=== PATIENT | male | born 1985 | race Caucasian/White ===

== ENCOUNTER → 2016-12-11 | Outpatient (CLI) | payer BC ==
[~2016-12-11] VITALS: Ht 180.3 cm; Wt 102.1 kg
[~2016-12-11] MED LIST: LEVO200T5 PO; PROP40TA PO; SINCALIDE 2 MCG in IV NORMAL SALINE 50ML 30 ML IV ONE
--- NOTE | 2016-12-11 12:36 | RAD ---
EXAM: Nuclear hepatobiliary scan with ejection fraction. HISTORY: Abdominal pain/nausea. TECHNIQUE: Serial static images are obtained of the liver and biliary system in a frontal projection following IV administration of 5.5 mCi of technetium-99m Choletec. After filling of the gallbladder, 2 mcg of sincalide were infused over 30 minutes and dynamic imaging continued over this period. The gallbladder ejection fraction was calculated. FINDINGS: There is prompt hepatic clearance of tracer from the blood pool. There is homogeneous distribution throughout the liver. There is normal filling of the gallbladder and normal emptying into the biliary system and small bowel. The gallbladder ejection fraction is 87.7% (normal >35%). IMPRESSION: 1. Normal gallbladder ejection fraction.
== END | disposition home or self-care (01) ==
LOC: NM 10:08
PROVIDERS: ATTEND Family Medicine
DX: R10.84 Generalized abdominal pain (principal); R11.0 Nausea
CPT/HCPCS: 78226; 96374; 96375; A9537; J2805